=== PATIENT | female | born 1950 | race Caucasian/White ===

== ENCOUNTER → 2016-12-14 | Outpatient (CLI) | payer OTHER ==
[~2016-12-14] MED LIST: ALPRAZOLAM0.5 MG PO; ASPIRIN EC325 MG PO; CILOSTAZOL50 MG PO; FORTAMET500 MG PO; HUMULIN 70100 UNITS/ SQ; LEVAQUIN TAB 5500 MG PO; LEXAPRO20 MG PO; LISINOPRIL-HCT1 EAC1 PO; METOPROLOL SUC100 MG PO; PRAVACHOL20 MG PO; VIT D PO
== END ==
LOC: SLEEP 14:39
DX: G47.33 Obstructive sleep apnea (adult) (pediatric) (principal)
CPT/HCPCS: 95810

== ENCOUNTER 2021-01-03 20:13 | Emergency (ER) | payer OTHER | END 2021-01-03 23:15 | disposition home or self-care (01) | LOC: ER1 20:13 | DX: S00.83XA Contusion of other part of head, initial encounter (principal); I10 Essential (primary) hypertension; E11.9 Type 2 diabetes mellitus without complications; F17.200 Nicotine dependence, unspecified, uncomplicated; W01.0XXA Fall on same level from slipping, tripping and stumbling without subsequent striking against object, initial encounter; Y92.009 Unspecified place in unspecified non-institutional (private) residence as the place of occurrence of the external cause; Z23 Encounter for immunization | CPT/HCPCS: 70450; 73564; 90471; 90715; 99284 ==

== ENCOUNTER → 2021-01-15 | Outpatient (CLI) | payer OTHER | LOC: HEART 5 11:14 | DX: I47.2 Ventricular tachycardia (principal) | CPT/HCPCS: 93306 ==